=== PATIENT | female | born 1965 | race Caucasian/White ===

== ENCOUNTER 2019-04-07 08:47 | Day surgery (SDC) | payer BC ==
[~2019-04-07] VITALS: Ht 165.1 cm; Wt 80.1 kg
[~2019-04-07 08:47] MED LIST: B-1100 MG PO; Ferrous Sulfat325 M2 PO; MEDR10 PO; NAPR500 PO; Prilosec Otc20 MG PO; VITAMIN C500 M1 PO
== END 2019-04-07 10:46 | disposition home or self-care (01) ==
LOC: ORSCSDS 08:47
PROVIDERS: Internal Medicine Gastroenterology
PROC: 0DB68ZX Excision of Stomach, Via Natural or Artificial Opening Endoscopic, Diagnostic (ICD-10-PCS; principal; 2019-04-07 10:15)
PROC: 0DB98ZX Excision of Duodenum, Via Natural or Artificial Opening Endoscopic, Diagnostic (ICD-10-PCS; principal; 2019-04-07 10:15)
DX: D50.9 Iron deficiency anemia, unspecified (principal); K22.10 Ulcer of esophagus without bleeding; K44.9 Diaphragmatic hernia without obstruction or gangrene; K29.70 Gastritis, unspecified, without bleeding; G47.33 Obstructive sleep apnea (adult) (pediatric); E11.9 Type 2 diabetes mellitus without complications; J44.9 Chronic obstructive pulmonary disease, unspecified; F17.210 Nicotine dependence, cigarettes, uncomplicated
CPT/HCPCS: 82947; 88305; 88342; J2704; J7120

== ENCOUNTER 2022-07-10 14:52 | Inpatient (IN) | payer OTHER ==
[~2022-07-10] VITALS: Ht 165.1 cm; Wt 75.8 kg
[2022-07-10 15:27] LABS: BASOPHILS ABSOLUTE AUTO 0.09 K/mm3 (0.00-0.23); BASOPHILS PERCENT AUTO 1 % (0-2); EOSINOPHILS ABSOLUTE AUTO 0.02 K/mm3 (0.00-0.68); EOSINOPHILS PERCENT AUTO 0 % (0-6); Hematocrit 34.6 % (33.0-51.0); Hemoglobin 11.2 g/dL (11.5-16.0); IMMATURE GRAN ABSOLUTE AUTO 0.05 K/mm3 (0.00-0.10); IMMATURE GRAN PERCENT AUTO 0 % (0-1); LYMPHOCYTES ABSOLUTE AUTO 2.25 K/mm3 (0.84-5.20); LYMPHOCYTES PERCENT AUTO 18 % (21-46); MONOCYTES PERCENT AUTO 8 % (4-13); Mean Corpuscular HGB 27.8 pg (26.0-34.0); Mean Corpuscular HGB Conc 32.4 g/dL (31.5-36.5); Mean Corpuscular Volume 86 fL (80-100); Mean Platelet Volume 9.4 fL (9.1-12.4); NEUTROPHILS ABSOLUTE AUTO 9.14 K/mm3 (1.96-9.15); NEUTROPHILS PERCENT AUTO 73 % (41-73); Platelet Count 402 K/mm3 (150-400); RDW Coefficient Variation 17.7 % (11.7-14.2); RDW Standard Deviation 56.2 fL (35.1-46.3); Red Blood Cell Count 4.03 M/mm3 (3.80-5.20); White Blood Cell Count 12.55 K/mm3 (4.00-11.30)
[2022-07-10 15:51] LABS: Albumin, Blood 3.3 g/dL (3.4-5.0); Albumin/Globulin Ratio 1.1 (0.8-1.8); Bilirubin, Total 0.6 mg/dL (0.1-1.0); Bun/Creatinine Ratio 122.8 (12.0-20.0); Calcium, Blood 9.1 mg/dL (8.5-10.1); Creatinine, Blood 0.52 mg/dL (0.40-1.00); Globulin, Blood 3.1 g/dL (2.2-4.0); Potassium, Blood 3.7 mmol/L (3.5-5.5); Total Protein, Blood 6.4 g/dL (6.4-8.2)
[2022-07-10 19:15] LABS: International Normalized Ratio 1.02; Prothrombin Time Results 10.7 Sec (9.7-11.5)
[2022-07-10 20:31] LABS: Hematocrit 34.1 % (33.0-51.0); Hemoglobin 11.1 g/dL (11.5-16.0)
[2022-07-10] MEDS ORDERED: JARDIANCE25 MG PO (21:35)
[2022-07-10] MEDS ORDERED: OMEP20ER PO (21:35)
[2022-07-10] MEDS ORDERED: METFORMIN ER G500 MG PO (21:35)
[2022-07-10] MEDS ORDERED: B COMPLEX WITH1 EACH PO (21:35)
[2022-07-10] MEDS ORDERED: GLIP2.5ER (21:36)
[2022-07-11 02:08] LABS: Hematocrit 30.8 % (33.0-51.0)
[2022-07-11 02:24] LABS: Bun/Creatinine Ratio 72.2 (12.0-20.0); Calcium, Blood 8.4 mg/dL (8.5-10.1); Creatinine, Blood 0.67 mg/dL (0.40-1.00); Potassium, Blood 3.7 mmol/L (3.5-5.5)
--- NOTE | 2022-07-11 05:42 | NUR ---
ADMIT NOTE ADMITTED 57 YR OLD FEMALE FROM THE ED WITH DX OF UPPER GI BLEED. HCT 10.0 AND HCT 30.8 AT 0156. ON PROTONIX DRIP. HX ANEMIA, DM AND TACHYCARDIA. ORIENTED TO CALL LIGHT AND CALL LIGHT IN REACH. NPO.
--- NOTE | 2022-07-11 07:16 | NUR ---
ACCU CHECK 451 AT 0600, SCHEDULED INSULIN NOT AVAIL IN PHARMACY, NOTIFIED AND INSULIN CHANGED TO HUMALOG INSULIN KWIK PEN. TO RECEIVE 5 U. AWAITING MED FROM PHARMACY. WILL CONT ACCU CHECK Q 6H WHILE NPO, THEN CHANGE TO ACHS. AM RN IN AND RECEIVED REPORT. AM RN TO ADMIN INSULIN. AWAITING POTASSIUM ORDERED WELL FROM PHARM. CALL LIGHT IN REACH
[2022-07-11 08:38] LABS: BASOPHILS ABSOLUTE AUTO 0.04 K/mm3 (0.00-0.23); BASOPHILS PERCENT AUTO 0 % (0-2); EOSINOPHILS PERCENT AUTO 0 % (0-6); Hematocrit 29.5 % (33.0-51.0); Hemoglobin 9.7 g/dL (11.5-16.0); IMMATURE GRAN ABSOLUTE AUTO 0.23 K/mm3 (0.00-0.10); IMMATURE GRAN PERCENT AUTO 1 % (0-1); LYMPHOCYTES ABSOLUTE AUTO 0.94 K/mm3 (0.84-5.20); LYMPHOCYTES PERCENT AUTO 4 % (21-46); MONOCYTES ABSOLUTE AUTO 1.32 K/mm3 (0.16-1.47); MONOCYTES PERCENT AUTO 6 % (4-13); Mean Corpuscular HGB 27.7 pg (26.0-34.0); Mean Corpuscular HGB Conc 32.9 g/dL (31.5-36.5); Mean Corpuscular Volume 84 fL (80-100); Mean Platelet Volume 9.4 fL (9.1-12.4); NEUTROPHILS ABSOLUTE AUTO 20.87 K/mm3 (1.96-9.15); NEUTROPHILS PERCENT AUTO 89 % (41-73); Platelet Count 320 K/mm3 (150-400); RDW Coefficient Variation 17.9 % (11.7-14.2); RDW Standard Deviation 54.6 fL (35.1-46.3)
[2022-07-11 08:55] LABS: Albumin, Blood 3.1 g/dL (3.4-5.0); Albumin/Globulin Ratio 1.1 (0.8-1.8); Bilirubin, Total 0.5 mg/dL (0.1-1.0); Bun/Creatinine Ratio 61.6 (12.0-20.0); Calcium, Blood 8.3 mg/dL (8.5-10.1); Creatinine, Blood 0.8 mg/dL (0.40-1.00); Globulin, Blood 2.8 g/dL (2.2-4.0); Potassium, Blood 4.4 mmol/L (3.5-5.5); Total Protein, Blood 5.9 g/dL (6.4-8.2)
[2022-07-11 13:04] LABS: BASOPHILS ABSOLUTE AUTO 0.03 K/mm3 (0.00-0.23); BASOPHILS PERCENT AUTO 0 % (0-2); EOSINOPHILS PERCENT AUTO 0 % (0-6); Hematocrit 30.3 % (33.0-51.0); IMMATURE GRAN ABSOLUTE AUTO 0.16 K/mm3 (0.00-0.10); IMMATURE GRAN PERCENT AUTO 1 % (0-1); LYMPHOCYTES ABSOLUTE AUTO 0.95 K/mm3 (0.84-5.20); LYMPHOCYTES PERCENT AUTO 4 % (21-46); MONOCYTES ABSOLUTE AUTO 1.69 K/mm3 (0.16-1.47); MONOCYTES PERCENT AUTO 7 % (4-13); Mean Corpuscular HGB 27.9 pg (26.0-34.0); Mean Corpuscular Volume 84 fL (80-100); Mean Platelet Volume 9.6 fL (9.1-12.4); NEUTROPHILS ABSOLUTE AUTO 20.94 K/mm3 (1.96-9.15); NEUTROPHILS PERCENT AUTO 88 % (41-73); Platelet Count 309 K/mm3 (150-400); RDW Coefficient Variation 17.8 % (11.7-14.2); RDW Standard Deviation 54.9 fL (35.1-46.3); Red Blood Cell Count 3.59 M/mm3 (3.80-5.20); White Blood Cell Count 23.77 K/mm3 (4.00-11.30)
[2022-07-11 16:34] LABS: Percent Saturation 6.5 % (15.0-50.0)
--- NOTE | 2022-07-11 18:24 | NUR ---
SHIFT SUMMARY PT ARRIVED TO PCU FROM MEDICAL FLOOR VIA MEDICAL FLOOR BED AT APPROX 1300. BEDS WERE SWAPPED TO AVOID SLIDING PT. PT A&OX4. SP02>90% ON 4L NC. PT C/O OF SOB W/ EXERTION. RECEIVED LASIKS PRIOR TO TRANSFER, PT STATES BIG IMPROVEMENT IN SOB AFTER RECEIVING. TELEMETRY SHOWS SINUS TACH, HR 110'S-130'S MOSTLY. BP SOFT. RECEIVED CRITIAL TROPONIN OF 2796, MD WALTER NOTIFIED, TROPONIN LABS ORDERED TO CONTINUE TRENDING. CARDIOLOGY CONSULTED THIS SHIFT, IN ROOM TO ASSESS PT. ECHO DONE THIS AFTERNOON. PT REMAINS NPO PER CARDIOLOGY. UP TO BSC 1 PERSON ASSIST FOR LINE MANANGEMENT. REPOSITIONS SELF IN BED. PROTONIX GTT STARTED IN PCU AND INFUSING PER EMAR. 1/2 NS INFUSING PER EMAR. AND DAUGHTER IN ROOM. CALL LIGHT IN REACH.
[2022-07-11 18:26] LABS: Hematocrit 27.8 % (33.0-51.0); Hemoglobin 9.2 g/dL (11.5-16.0)
--- NOTE | 2022-07-11 19:58 | NUR ---
SHIFT SUMMARY PTN ON MEDICAL FLOOR FOR MORNING, THEN TRANSFERRED TO PCU FOR CLOSER OBSERVATION. NPO FOR POSSIBLE GI BLEED. DYSPNEA ON EXERTION. ON 4L NC, TELEMETRY SINUS TACHYCARDIA. PTN JUST WANTING TO SLEEP, COOPERATIVE WITH CARE.
--- NOTE | 2022-07-11 21:24 | NUR ---
@ 2014 DR ROSARIO @ BS, NO CHANGE IN STATUS, TROP AND LACTIC PENDING 2109 DR KINNEY @ BS AFTER BEING NOTIFIED OF INCREASING CRITICAL TROP AND LACTIC, CLOSELY MONITOR B/P AND NOTIFY HER WITH ANY CHANGES, MAP HOLDING FOR NOW 64-78, PT DENIES CP SND ANY WORSENING OF SOB, LYING WITH EYES CLOSED, COOPERATIVE AND ANSWERING APPROPRIATLEY
[2022-07-12 01:27] LABS: Hematocrit 26.1 % (33.0-51.0); Hemoglobin 8.6 g/dL (11.5-16.0)
--- NOTE | 2022-07-12 05:37 | NUR ---
PT ON PROTONIX GTT, NO BM, PT UP TO BSC WITHOUT ISSUE, MAP'S LOW AT THE BEGINNING OF SHIFT BUT THEY HAVE BEEN HOLDING ABOVE 60, AFEBRILE, FSBS TRENDING DOWN, LAST ONE AT 0400 WAS 242, , MORNING LABS PENDING, CALL LIGHT IN REACH
[2022-07-12 06:53] LABS: Albumin, Blood 2.8 g/dL (3.4-5.0); Anion Gap 5 mmol/L (6-16); Blood Urea Nitrogen 24 mg/dL (8-24); Bun/Creatinine Ratio 46.9 (12.0-20.0); CO2, Blood 27 mmol/L (21-32); Calcium, Blood 8.8 mg/dL (8.5-10.1); Chloride, Blood 111 mmol/L (98-108); Creatinine, Blood 0.51 mg/dL (0.40-1.00); Glomerular Filtration Rate 107 (60-); Glucose, Blood 274 mg/dL (70-99); Potassium, Blood 3.7 mmol/L (3.5-5.5); Sodium, Blood 143 mmol/L (136-145)
[2022-07-12 08:50] LABS: BASOPHILS ABSOLUTE AUTO 0.02 K/mm3 (0.00-0.23); BASOPHILS PERCENT AUTO 0 % (0-2); EOSINOPHILS PERCENT AUTO 0 % (0-6); Hematocrit 26.6 % (33.0-51.0); Hemoglobin 8.8 g/dL (11.5-16.0); IMMATURE GRAN ABSOLUTE AUTO 0.08 K/mm3 (0.00-0.10); IMMATURE GRAN PERCENT AUTO 1 % (0-1); LYMPHOCYTES ABSOLUTE AUTO 0.67 K/mm3 (0.84-5.20); LYMPHOCYTES PERCENT AUTO 4 % (21-46); MONOCYTES PERCENT AUTO 8 % (4-13); Mean Corpuscular HGB 28.1 pg (26.0-34.0); Mean Corpuscular HGB Conc 33.1 g/dL (31.5-36.5); Mean Corpuscular Volume 85 fL (80-100); Mean Platelet Volume 10.1 fL (9.1-12.4); NEUTROPHILS ABSOLUTE AUTO 13.13 K/mm3 (1.96-9.15); NEUTROPHILS PERCENT AUTO 87 % (41-73); Platelet Count 231 K/mm3 (150-400); RDW Coefficient Variation 18.4 % (11.7-14.2); Red Blood Cell Count 3.13 M/mm3 (3.80-5.20)
[2022-07-12 13:43] LABS: Hematocrit 25.8 % (33.0-51.0); Hemoglobin 8.4 g/dL (11.5-16.0)
--- NOTE | 2022-07-12 18:10 | NUR ---
SHIFT SUMMARY PT A&OX4. PLEASANT, COOPERATIVE WITH CARE. SP02>90% ON 3L NC. DENIED SOB. TELEMETRY SHOWS SINUS TACH, HR MOSTLY 110'S. DENIED PAIN. PT UPGRADED TO CL DIET. PROTONIX GTT INFUSING PER EMAR. UP TO BSC TO VOID. NO BM THIS SHIFT. NO EMESIS/MELENA. POWERGLIDE INSERTED IN LEW. FAMILY IN ROOM MOST OF DAY. CALL LIGHT IN REACH.
[2022-07-12 21:36] LABS: BASOPHILS ABSOLUTE AUTO 0.03 K/mm3 (0.00-0.23); BASOPHILS PERCENT AUTO 0 % (0-2); EOSINOPHILS PERCENT AUTO 0 % (0-6); Hematocrit 25.7 % (33.0-51.0); Hemoglobin 8.5 g/dL (11.5-16.0); IMMATURE GRAN ABSOLUTE AUTO 0.07 K/mm3 (0.00-0.10); IMMATURE GRAN PERCENT AUTO 1 % (0-1); LYMPHOCYTES ABSOLUTE AUTO 0.95 K/mm3 (0.84-5.20); LYMPHOCYTES PERCENT AUTO 6 % (21-46); MONOCYTES ABSOLUTE AUTO 1.55 K/mm3 (0.16-1.47); MONOCYTES PERCENT AUTO 10 % (4-13); Mean Corpuscular HGB 28.1 pg (26.0-34.0); Mean Corpuscular HGB Conc 33.1 g/dL (31.5-36.5); Mean Corpuscular Volume 85 fL (80-100); Mean Platelet Volume 9.9 fL (9.1-12.4); NEUTROPHILS ABSOLUTE AUTO 12.39 K/mm3 (1.96-9.15); NEUTROPHILS PERCENT AUTO 83 % (41-73); NRBC ABSOLUTE 0.13 K/mm3 (0.00-0.02); NRBC Auto 0.9 /100 WBC (0.0-0.2); Platelet Count 232 K/mm3 (150-400); RDW Coefficient Variation 18.4 % (11.7-14.2); RDW Standard Deviation 56.9 fL (35.1-46.3); Red Blood Cell Count 3.02 M/mm3 (3.80-5.20); White Blood Cell Count 14.99 K/mm3 (4.00-11.30)
[2022-07-13 04:17] LABS: BASOPHILS ABSOLUTE AUTO 0.02 K/mm3 (0.00-0.23); BASOPHILS PERCENT AUTO 0 % (0-2); EOSINOPHILS PERCENT AUTO 0 % (0-6); Hematocrit 26.5 % (33.0-51.0); Hemoglobin 8.8 g/dL (11.5-16.0); IMMATURE GRAN ABSOLUTE AUTO 0.07 K/mm3 (0.00-0.10); IMMATURE GRAN PERCENT AUTO 1 % (0-1); LYMPHOCYTES ABSOLUTE AUTO 0.96 K/mm3 (0.84-5.20); LYMPHOCYTES PERCENT AUTO 7 % (21-46); MONOCYTES PERCENT AUTO 11 % (4-13); Mean Corpuscular HGB 28.1 pg (26.0-34.0); Mean Corpuscular HGB Conc 33.2 g/dL (31.5-36.5); Mean Corpuscular Volume 85 fL (80-100); Mean Platelet Volume 10.1 fL (9.1-12.4); NEUTROPHILS ABSOLUTE AUTO 11.51 K/mm3 (1.96-9.15); NEUTROPHILS PERCENT AUTO 82 % (41-73); NRBC ABSOLUTE 0.18 K/mm3 (0.00-0.02); NRBC Auto 1.3 /100 WBC (0.0-0.2); Platelet Count 240 K/mm3 (150-400); RDW Coefficient Variation 18.5 % (11.7-14.2); RDW Standard Deviation 56.5 fL (35.1-46.3); Red Blood Cell Count 3.13 M/mm3 (3.80-5.20); White Blood Cell Count 14.06 K/mm3 (4.00-11.30)
[2022-07-13 04:40] LABS: Albumin, Blood 2.7 g/dL (3.4-5.0); Albumin/Globulin Ratio 0.7 (0.8-1.8); Bilirubin, Total 0.5 mg/dL (0.1-1.0); Bun/Creatinine Ratio 40.4 (12.0-20.0); Calcium, Blood 8.9 mg/dL (8.5-10.1); Creatinine, Blood 0.57 mg/dL (0.40-1.00); Globulin, Blood 3.7 g/dL (2.2-4.0); Magnesium, Blood 1.8 mg/dL (1.6-2.4); Phosphorus, Blood 2.7 mg/dL (2.5-4.9); Potassium, Blood 3.8 mmol/L (3.5-5.5); Total Protein, Blood 6.4 g/dL (6.4-8.2)
--- NOTE | 2022-07-13 05:00 | NUR ---
SHIFT SUMMARY NO ACUTE CHANGES THIS SHIFT. AXO. VSS. SR/ST. ON 2-3LNC, SPO2 >92% WITH MINOR ESATS WITH GETTING UP TO BSC. PT HAS HAD SOME ABDOMINAL TENDERNESS THAT IS RELIEVED WELL WITH HEAT APPLICATION. PT GETTING UP TO BSC WELL WITH LITTLE TO NO ASSIST. NO BM'S THIS SHIFT. CIWAS ARE NEGATIVE. PROTONIX GTT INFUSING. Q4 CBG'S STABLE. PG PATENT. DRAWS WELL. OTHERWISE, PT ATTEMPTING TO REST THIS SHIFT. USES CALL LIGHT APPROPRIATELY. BED IN LOW POSITION.
--- NOTE | 2022-07-13 12:56 | NUR ---
DR NOTIFIED OF PT LOW BP'S DURING NOON VITALS. DR ORDERED LISINOPRIL TO BE DC'D AND TO PUT PARAMETERS ON THE CARVIDILOL IF THERE ARE NONE. LISINOPRIL DC'D
--- NOTE | 2022-07-13 16:49 | NUR ---
DEMOLITION EXPERT CONTACTED ABOUT PT SBP OF 87. DR INSTRUCTED RN TO HOLD CARVEDILOL THIS EVENING AND TO GO AHEAD AND GIVE LASIX TONIGHT. SAID HE WILL EVALUATE MEDS TOMORROW.
--- NOTE | 2022-07-13 19:15 | NUR ---
SHIFT SUMMARY PT A/OX4 AND COOPERATIVE OF CARE. PT BP STABLE THIS AM, BECAME SOFT AROUND NOON WITH SBP IN THE 80'S, ASYMPTOMATIC. DR NOTIFIED AND HAY CHOPPER NOTIFIED. LISINOPRIL DC'D AND CARVEDILOL HELD PER CARDIOLGIST. PT HR ST THROUGHOUT SHIFT IN THE 100'S. OTHER VSS THROUGHOUT SHIFT WITH 02 SATS IN THE 90'S ON 0-1L NC. NO REPORT OF CHEST PAIN/PRESSURE THROUGHOUT SHIFT. NO REORT OF SOB/DYSPNEA THROUGHOUT SHIFT. PT UP TO TOILET A COUPLE OF TIME DURING SHIFT, TOLERATED WELL. PT REPORTING "BEING GASSY" NOTIFIED, SIMETHICONE ORDERED.
--- NOTE | 2022-07-14 01:09 | NUR ---
UPDATE CALL PLACED TO HOSPITAL WITH CONCERNS ABOUT PATIENT. PATIENT REPORTING PAIN IN HER ABDOMEN AND HASN'T BEEN ABLE TO HAVE A BM "FOR A COUPLE DAYS". THIS RN MEDICATED PATIENT PER EMAR WITH PRN BOWEL CARE. CALL PLACED TO RESIDENT AND ORDERS RECIEVED FOR SOAP SHABBIR ENEMA. ALSO INFORMED RESIDENT OF PATIENT HAVING MINIMAL, DARK COLORED URINE OUTPUT. ORDER RECIEVED FOR UA WELL. SOAP SHABBIR ENEMA GIVEN TO PATIENT WITH MINIMAL RELIEF. PATIENT'S ABDOMEN IS MORE DISTENDED SINCE ADMISSION ASSESSMENT WELL ABSENT BOWEL TONES, SEE UPDATED GI REASSESSMENT. PATIENT IS HYPOTENSIVE AND TACHYCARDIC 100s-110s, BUT REMAINS ASYMTPOMATIC OTHER THAN "COLD SWEATS". ASSISTANT OFFSET PRESS OPERATOR PLACED CALL TO RESIDENT AGAIN WITH UPDATE, RESIDENT TO COME TO BEDSIDE AND EVALUATE PATIENT.
--- NOTE | 2022-07-14 01:18 | NUR ---
RESIDENT DR. Barber AT BEDSIDE EVALUATING PATIENT.
--- NOTE | 2022-07-14 01:45 | NUR ---
UPDATE ORDERS RECIEVED FROM RESIDENT DR. Barber FOR STAT CT SCAN AND MORPHINE FOR PAIN MANAGEMENT. SEE UPDATED ORDERS.
--- NOTE | 2022-07-14 02:30 | NUR ---
UPDATE PATIENT BACK IN ROOM AFTER CT AROUND 0. AWAITING RESULTS FROM [facility]. MEDICATED PER EMAR FOR PAIN.
--- NOTE | 2022-07-14 05:06 | NUR ---
ASSUMED CARE OF PT AT 0455 PT HYPOTENSIVE WITH BP OF 73/56. LEVO STARTED AT [address] SWEENEY IN ROOM WITH PT RELAYING RESULTS OF BOWEL OBST WITH NEC BOWELS. PT SPOUSE CONTACTED BY PT BEFORE GETTING TO ICU ROOM. PT ABLE TO ANSWER QUESTIONS.
--- NOTE | 2022-07-14 05:11 | NUR ---
CONVERSATION BETWEEN DR SWEENEY AND PT. PT STATES SHE WANT TO CONTINUE FULL CODE STATUS. INCLUDING CPR, INTUBATION/LIFE SUPPORT.
--- NOTE | 2022-07-14 05:19 | NUR ---
UPDATE 0415 PATIENT SITTING UP TO SIDE OF BED, AM VITALS BEING DONE, MONITOR NOT READING BP. MANUAL PERFORMED, BP READING 70/40, HR 90s, PATIENT ON RA WITH O2 SAT MID 90s. PATIENT REPORTING DIZZINESS DURING MANUAL BP. THIS RN CALLED TRANSPLANT REGISTERED NURSE INTO ROOM, TRANSPLANT REGISTERED NURSE CALLED RESIDENT FOR RESIDENT TO COME TO BEDSIDE. PATIENT BECAME EVEN MORE DIZZY AND STARTED LEANING TO LAY DOWN. PATIENT ASSISTED IN BED AND IMMEDIATLEY PLACED IN [place]. TRANSPLANT REGISTERED NURSE, THIS RN AND RESIDENT AT BEDSIDE DURING EVALUATION. 0426 PATIENT REMAINS IN [place] POSITION. MANUAL BP CONTINUES TO DROP. RESIDENT RECIEVED CALL FROM [facility] WITH CT RESULTS. THIS RN ASSISTED PATIENT WITH CALLING HER . GIVEN UPDATE AND ASKED TO COME TO HOSPITAL. 0445 DECISION TO TRANSFER PATIENT TO ICU. PATIENT AWAKE BUT REPORTS SHE IS "VERY SLEEPY AND HASN'T BEEN UP THIS LONG IN A WHILE". BEDSIDE REPORT GIVEN TO DEVELOPMENT TECHNOLOGIST. PATIENT TRANSFERRED WITH ALL BELONGINGS.
--- NOTE | 2022-07-14 05:23 | NUR ---
DR SKINNER IN ROOM WITH PT AT THIS TIME.
[2022-07-14 05:54] LABS: Hematocrit 29.1 % (33.0-51.0); Hemoglobin 9.6 g/dL (11.5-16.0); Mean Corpuscular HGB 27.8 pg (26.0-34.0); Mean Corpuscular Volume 84 fL (80-100); Mean Platelet Volume 10.4 fL (9.1-12.4); NRBC ABSOLUTE 0.85 K/mm3 (0.00-0.02); Platelet Count 253 K/mm3 (150-400); RDW Coefficient Variation 19.3 % (11.7-14.2); RDW Standard Deviation 56.9 fL (35.1-46.3); Red Blood Cell Count 3.45 M/mm3 (3.80-5.20); White Blood Cell Count 14.28 K/mm3 (4.00-11.30)
--- NOTE | 2022-07-14 05:54 | NUR ---
SPOUSE IN ROOM TALKING WITH DR SKINNER AT THIS TIME. SPOUSE JUAN INFORMED OF SITUATION.
--- NOTE | 2022-07-14 06:02 | NUR ---
DR WALTER IN ROOM TALKING WITH PT AT THIS TIME.
[2022-07-14 06:03] LABS: International Normalized Ratio 1.07; Prothrombin Time Results 11.2 Sec (9.7-11.5)
--- NOTE | 2022-07-14 06:38 | NUR ---
PT TO OR AT THIS TIME.
[2022-07-14 06:41] LABS: BAND PERCENT MAN 30 % (0-8); BASOPHILS PERCENT MAN 0 % (0-2); EOSINOPHILS PERCENT MAN 0 % (0-6); LYMPHOCYTES ABSOLUTE MAN 0.71 K/mm3 (0.84-5.20); LYMPHOCYTES PERCENT MAN 5 % (21-46); MONOCYTES ABSOLUTE MAN 2.28 K/mm3 (0.16-1.47); MONOCYTES PERCENT MAN 16 % (4-13); NEUTROPHILS ABSOLUTE MAN 11.28 K/mm3 (1.96-9.15); SEG NEUTROPHILS PERCENT MAN 49 % (41-73); TOTAL CELLS COUNTED 100
[2022-07-14 06:51] LABS: Albumin, Blood 2.3 g/dL (3.4-5.0); Albumin/Globulin Ratio 0.6 (0.8-1.8); Bilirubin, Total 0.5 mg/dL (0.1-1.0); Bun/Creatinine Ratio 25.1 (12.0-20.0); Calcium, Blood 8.3 mg/dL (8.5-10.1); Creatinine, Blood 1.83 mg/dL (0.40-1.00); Globulin, Blood 3.8 g/dL (2.2-4.0); Magnesium, Blood 4.2 mg/dL (1.6-2.4); Potassium, Blood 3.6 mmol/L (3.5-5.5); Total Protein, Blood 6.1 g/dL (6.4-8.2)
--- NOTE | 2022-07-14 09:18 | NUR ---
PT ADMITTED TO ICU AT 0830 S/P EXP LAP W SB RESECTION, ABD LEFT OPEN/COVERED. BEDSIDE REPORT TAKEN FROM ANESTHESIOLOGIST AND DR SKINNER. DR WALTER AT BEDSIDE WELL. PT ARRIVED INTUBATED, PLACED ON VENT AC/VC 18/380/5/100%. 7.5 ETT 22CM@GUMS. PT NOT ON SEDATION, UNRESPONSIVE. LEVOPHED RUNNING AT 12MCG, INCREASED TO 16MCG TO KEEP MAP >65. STAT CTA COMPLETED SHORTLY AFTER ARRIVAL TO ICU. PER RADIOLOGIST/DR SKINNER, CLOTS TO MESENTARIC ART. DISSCUSION HELD W /DR SKINNER AND FAMILY. FAMILY PLANS TO TRANSITION TO COMFORT CARE AFTER MORE FAMILY ARRIVES. PASTORAL CARE OFFERED AND DECLINED. COMFORT PROVIDED FOR FAMILY.
--- NOTE | 2022-07-14 10:54 | NUR ---
COMFORT CARE ORDERS PLACED. PT GRIMACING PRIOR TO EXTUBATION. MEDICATED W ATIVAN AND DILAUDID FOR COMFORT. PT EXTUBATED AT 1037, TIME OF 1047.
--- NOTE | 2022-07-14 11:24 | NUR ---
DR WALTER NOTIFIED AND STOPPED BY TO CHECK ON FAMILY. PALLIATIVE CARE ALSO SPOKE W FAMILY. [facility] DIRECTORS CALLED PER FAMILY REQUEST.
== END 2022-07-14 12:08 | DRG 853 ==
LOC: ER 14:52 → MEDS 14:53 → PCU 07-11 13:03 → ICUE 07-11 14:42 → PCU 07-11 14:42 → ICUE 07-14 04:55
PROVIDERS: Emergency Medicine; Family Medicine; Internal Medicine Cardiovascular Disease; Physician Assistant; Surgery; ADMIT Internal Medicine
PROC: 0W9J00Z Drainage of Pelvic Cavity with Drainage Device, Open Approach (ICD-10-PCS; 2022-07-14)
PROC: 3E033XZ Introduction of Vasopressor into Peripheral Vein, Percutaneous Approach (ICD-10-PCS; 2022-07-14)
PROC: 3E03329 Introduction of Other Anti-infective into Peripheral Vein, Percutaneous Approach (ICD-10-PCS; 2022-07-14)
PROC: 0DB80ZZ Excision of Small Intestine, Open Approach (ICD-10-PCS; principal; 2022-07-14 07:00)
DX: A41.9 Sepsis, unspecified organism (principal); I50.21 Acute systolic (congestive) heart failure; K55.029 Acute infarction of small intestine, extent unspecified; R65.21 Severe sepsis with septic shock; I42.9 Cardiomyopathy, unspecified; Z51.5 Encounter for palliative care; R77.8 Other specified abnormalities of plasma proteins; J44.9 Chronic obstructive pulmonary disease, unspecified; K76.0 Fatty (change of) liver, not elsewhere classified; F12.10 Cannabis abuse, uncomplicated; E11.65 Type 2 diabetes mellitus with hyperglycemia; F17.210 Nicotine dependence, cigarettes, uncomplicated; F10.10 Alcohol abuse, uncomplicated; D50.9 Iron deficiency anemia, unspecified; Z98.51 Tubal ligation status; Z98.890 Other specified postprocedural states; Z79.899 Other long term (current) drug therapy; Z79.84 Long term (current) use of oral hypoglycemic drugs
CPT/HCPCS: 36415; 71045; 74150; 74174; 74176; 80048; 80053; 80069; 82330; 82728; 82947; 83036; 83540; 83550; 83605; 83690; 83735; 83880; 84100; 84484; 85014; 85018; 85025; 85610; 85730; 86850; 86900; 86901; 86923; 87040; 88307; 93005; 93010; 94002; 94640; 94664; 96361; 96365; 96366; 96375; 96376; 99285-25; A9270; C1751; C8929; C9113; G0378; J0171; J1170; J1815; J1940; J2060; J2270; J2370; J2405; J2543; J2704; J2765; J2916; J3010; J3475; J7030; J7040; J7050; J7060; Q9957; Q9967